=== PATIENT | female | born 1995 | race American Indian/Alaskan Native ===

== ENCOUNTER 2020-11-02 20:46 | Outpatient (CLI) | payer OTHER ==
[2020-11-02 23:07] VITALS: BP 102/68
== END 2020-11-02 23:40 | disposition home or self-care (01) ==
LOC: TRG 20:46 → APU 21:59 → TRG 23:40
PROVIDERS: ATTEND Obstetrics & Gynecology
DX: O47.1 False labor at or after 37 completed weeks of gestation (principal); Z3A.39 39 weeks gestation of pregnancy
CPT/HCPCS: 59025; Q0177

== ENCOUNTER 2020-11-04 21:58 | Outpatient (CLI) | payer OTHER ==
[2020-11-04 22:59] VITALS: BP 102/58
[2020-11-04] MEDS ORDERED: hydrOXYzine HCL 100 MG/2 ML INJ IM ONE (23:57)
== END 2020-11-05 | disposition home or self-care (01) ==
LOC: TRG 21:58 → APU 22:00 → TRG 11-05
PROVIDERS: ATTEND Obstetrics & Gynecology
DX: Z34.93 Encounter for supervision of normal pregnancy, unspecified, third trimester (principal); Z3A.40 40 weeks gestation of pregnancy
CPT/HCPCS: 59025; Q0177

== ENCOUNTER 2020-11-05 08:24 | Inpatient (IN) | payer OTHER ==
[2020-11-05] MEDS ORDERED: TERBUTALINE 1 MG/1 ML INJ SUB-Q PRN (08:50)
[2020-11-05] MEDS ORDERED: NALOXONE 0.4 MG/1 ML INJ IV PRN (08:50)
[2020-11-05] MEDS ORDERED: OXYTOCIN 10 UNIT/1 ML INJ IM PRN (08:50)
--- NOTE | 2020-11-05 08:50 | History and Physical Report ---
History of Present Illness Date of admission: 11/05/20 Chief complaint: My contractions are getting stronger. History of present illness: Pt presented to labor and delivery in active labor. EDC Confirmation: 11/03/2020 Gestational Age: 40.2 weeks on admission Past History : 3 Term Births: 1 Premature Births: 0 Living Children: 1 Para: 1 Mult. Births: 0 Prev : 0 Aborta: 1 Elect. Ab: 0 Spont. Ab: 1 Ectopics: 0 # 1 Delivery date: 03/09/2016 Weeks Gestation: 41 labor: no Delivery type: Hours of labor: 14 Anesthesia type: epidural Delivery location: [facility] Infant Sex: Male weight: 7-8 Name: Rosalie # 2 Delivery date: Weeks Gestation: ? Delivery type: SAB Comments: No D&C Past Medical History: Asthma Past Surgical History: Negative Past Surgical History Family History Summary: Other Family Member - Has No Family History of Ovarvian Cancer - Entered On: 06/01/2020 Other Family Member - Has No Family History of Colon Cancer - Entered On: 06/01/2020 Other Family Member - Has No Family History of Breast Cancer - Entered On: 06/01/2020 Social History: Marital Status: Single Children: 1 Occupation: Unemployed Smoking History: Patient has never smoked. Past Medical History Surgery (Non-follow up clerk): Negative Past Surgical History Abnormal PAP: negative Uterine Anomaly: negative Social Hx: Marital Status: Single Children: 1 Occupation: Unemployed Smoking History: Patient has never smoked. Infection History Hx of STD: chlamydia HIV Risk Eval: no Hepatitis B Risk Eval: low risk Personal hx. of genital herpes: no Genetic History Congenital Heart Defect: Mom: no Dad: no Bita Disease: Mom: no Dad: no Thalassemia Mom: no Dad: no Neural Tube Defect Mom: no Dad: no Down's Syndrome Mom: no Dad: no Homar-Sachs Mom: no Dad: no Sickle Cell Disease/Trait Mom: no Dad: no Hemophilia Mom: no Dad: no Muscular Dystrophy Mom: no Dad: no Cystic Fibrosis Mom: no Dad: no [place] Chorea Mom: no Dad: no Mental Retardation Mom: no Dad: no Fragile X Mom: no Dad: no Other Genetic/Chromosomal Disorder Mom: no Dad: no Child w/other defect Mom: no Dad: no Enviromental Exposures Xray Exposure: no Medication, drug, or alcohol use since LMP: no Exposure to Cat Liter: no Active Medications (reviewed today): None Current Allergies (reviewed today): No known allergies Past History Past Medical History: asthma Past Surgical History: no surgical history Family/Genetic History: none Social history: no significant social history - Obstetrical History Expected Date of Delivery: 11/03/20 Actual Gestation: 40 Week(s) 2 Day(s) : 4 Para: 1 Hx # Term Pregnancies: 1 Number of Pregnancies: 0 Spontaneous Abortions: 1 Induced : 0 Number of Living Children: 1 Medications and Allergies Allergies Allergy/AdvReac Type Severity Reaction Status Date / Time No Known Allergies Allergy Verified 11/02/20 23:26 Home Medications Medication Instructions Recorded Confirmed Last Taken Type No Known Home Medications [No 11/02/20 11/02/20 Unknown History Reported Home Medications] Review of Systems All systems: negative - Vital Signs Vital signs: Vital Signs Pulse BP 100 H 109/70 11/05/20 08:49 11/05/20 08:49 Temp Pulse Resp BP Pulse Ox 100 H 109/70 11/05/20 08:49 11/05/20 08:49 - Physical Exam Breasts: Positive: deferred Cardiovascular: Regular rate Lungs: Positive: Normal air movement Abdomen: Positive: normal appearance, soft Uterus: Positive: normal size Extremities: Positive: normal - Obstetrical FHR: category 1 Uterine Contraction Monitor Mode: External Cervical Dilatation: 6 (Per ingredient handler) Cervical Effacement Percentage: 70 station: -2 Uterine Contraction Pattern: Regular Uterine Tone Measurement Phase: Resting Uterine Contraction Intensity: Moderate Results Result Diagrams: 11/05/20 09:16 All other labs normal. GBS NEGATIVE HBsAg Screen Negative Negative *1 RPR Non Reactive Non Reactive *2 Rubella Antibodies, IgG 1.11 index Immune >0.99 *3 Non-immune <0.90 Equivocal 0.90 - 0.99 Immune >0.99 ABO Grouping O *4 Rh Factor Positive *5 Please note: Prior records for this patient's ABO / Rh type are not available for additional verification. Antibody Screen Negative Negative *6 Tests: (2) HB Solu + Rflx Frac (165516) Hemoglobin (Hgb) Solubility Negative Negative *31 Tests: (3) HIV Ag/Ab with Reflex (104502) HIV Screen 4th Generation wRfx Non Reactive Non Reactive *32 Tests: (4) HCV Antibody reflex to [facility] (563890) ! HCV Ab <0.1 s/co ratio 0.0-0.9 *33 Tests: (5) Interpretation: ([id number]) ! Interpretation: SPRCS *34 Negative Not infected with HCV, unless recent infection is suspected or other evidence exists to indicate HCV infection. Assessment and Plan - Patient Problems (1) Post term over 40 weeks Onset Date: ~11/05/20 Current Visit: Yes Status: Acute Plan to address problem: Admit to labor and delivery. Drawn admission labs. Start IV. IV fluid bolus for epidural placement. Anticipate .
[2020-11-05] MEDS ORDERED: ONDANSETRON 4 MG/2 ML INJ IV PRN ×2 (09:00→11:58)
[2020-11-05] MEDS ORDERED: ePHEDrine SULFATE 50 MG/1 ML INJ IV PRN ×2 (09:00→10:49)
[2020-11-05] MEDS ORDERED: METHYLERGONOVINE MALEATE 0.2 MG/ML VIAL IM PRN (09:00)
[2020-11-05] MEDS ORDERED: LIDOCAINE (2%) 20 MG/1 ML VIAL 20 ML MDV INFILTRATI SCH (09:00)
[2020-11-05] MEDS ORDERED: LACTATED RINGERS 1,000 ML IV SCH (09:00)
[2020-11-05] MEDS ORDERED: BUTORPHANOL 2 MG/1 ML INJ IV PRN (09:00)
[2020-11-05] MEDS ORDERED: miSOPROStol 200 MCG TAB PR PRN (09:00)
[2020-11-05] MEDS ORDERED: CARBOPROST TROMETHAMINE 250 MCG/1 ML INJ IM PRN (09:00)
[2020-11-05] MEDS ORDERED: LOPERAMIDE 2 MG CAP PO PRN (09:00)
[2020-11-05] MEDS ORDERED: OXYTOCIN DRIP 30 UNITS/500 ML BAG IV SCH ×3 (09:00→12:00)
[2020-11-05] MEDS ORDERED: fentaNYL 100 MCG/2 ML INJ IV PRN (09:00)
[2020-11-05] MEDS ORDERED: MINERAL OIL 30 ML ORAL LIQD PO PRN (09:00)
[2020-11-05] MEDS ORDERED: ACETAMINOPHEN 500 MG TAB PO PRN (09:20)
[2020-11-05] MEDS ORDERED: PROMETHAZINE 25 MG TAB PO PRN ×2 (09:30→11:58)
[2020-11-05 09:42] LABS: Hematocrit 35.6 % (30.3-42.9); Hemoglobin 12.4 gm/dl (10.1-14.3); Mean Corpuscular HGB Conc 35 % (30-34); Mean Corpuscular Volume 88 fl (79-97); Platelet Count 278 K/mm3 (140-440); Red Blood Count 4.02 M/mm3 (3.65-5.03); Red Cell Distribution Width 15.4 % (13.2-15.2)
[2020-11-05] MEDS ORDERED: NALOXONE 2 MG/2 ML INJ IV PRN (10:49)
--- NOTE | 2020-11-05 10:50 | Anesthesia Consultation ---
Anesthesia Consult and Med Hx Date of service: 11/05/20 - Airway Anesthetic Teeth Evaluation: Poor ROM Head & Neck: Adequate Mental/Hyoid Distance: Adequate Mallampati Class: Class II Intubation Access Assessment: Probably Good - Pulmonary Exam CTA: Yes - Cardiac Exam Cardiac Exam: RRR - Pre-Operative Health Status ASA Pre-Surgery Classification: ASA2 Proposed Anesthetic Plan: Epidural - Pulmonary Hx Smoking: No Hx Asthma: Yes (LAST ATTACK 2011) Hx Respiratory Symptoms: No SOB: No COPD: No Home Oxygen Therapy: No Hx Pneumonia: No Hx Sleep Apnea: No - Cardiovascular System Hx Hypertension: No Hx Coronary Artery Disease: No Hx Heart Attack/AMI: No Hx Angina: No Hx Percutaneous Transluminal Coronary Angioplasty (PTCA): No Hx Cardia Arrhythmia: No Hx Pacemaker: No Hx Internal Defibrillator: No Hx Valvular Heart Disease: No Hx Heart Murmur: No Hx Peripheral Vascular Disease: No - Central Nervous System Hx Neuromuscular Disorder: No Hx Seizures: No CVA: No Hx Back Pain: Yes Hx Psychiatric Problems: No - Gastrointestinal Hx Ulcer: No Hx Gastroesophageal Reflux Disease: Yes - Endocrine Hx Renal Disease: No Hx End Stage Renal Disease: No Hx Cirrhosis: No Hx Liver Disease: No Hx Insulin Dependent Diabetes: No Hx Non-Insulin Dependent Diabetes: No Hx Thyroid Disease: No Hx Hypothyroidism: No Hx Hyperthyroidism: No - Hematic Hx Anemia: No Hx Sickle Cell Disease: No - Other Systems Hx Alcohol Use: Yes (SOCIALLY) Hx Substance Use: No Hx Cancer: No Hx Obesity: Yes
--- NOTE | 2020-11-05 10:53 | Progress Note ---
Labor Epidural - Labor Epidural Start Time: 10:28 Stop Time: 10:38 Performed by:: PEPE STEVENS Procedure: Patient is requesting a laboring epidural for laboring pain. Patient IDed, H&P reviewed, all questions and concerns were answered, and consent was signed. Timeout was performed at bedside. Patient in sitting position. Sterile prep and drape was performed. [3] ml of 1% lidocaine skin wheal at L[3]- L [4]. 18- gauge Miriam epidural needle was advanced to loss of resistance with saline technique 6cm. Single dural perforation via 27 guage spinal needle placed through the shaft of Epidural needle. Positive CSF via spinal needle. Negative CSF negative blood via Epidural needle. Epidural catheter advanced to [10] centimeters. [NEGATIVE] Aspiration [NEGATIVE] test dose. Negative Paresthesia. Sterile dressing applied. Patient tolerated procedure.
[2020-11-05] MEDS ORDERED: fentaNYL-BUPIV 2 MCG/ML-0.125% 200 MCG/100 ML BAG EPIDURAL SCH (11:00)
[2020-11-05] MEDS ORDERED: diphenhydrAMINE 25 MG CAP PO PRN (11:58)
[2020-11-05] MEDS ORDERED: PROMETHAZINE 25 MG RECT SUPP PR PRN (11:58)
[2020-11-05] MEDS ORDERED: LANOLIN/ZINC/DIMETHICONE (LANSINOH) 7 GM TP PRN ×2 (11:58)
[2020-11-05] MEDS ORDERED: WITCH HAZEL/ GLYCERIN PAD TP PRN (11:58)
[2020-11-05] MEDS ORDERED: BENZOCAINE/MENTHOL 20/0.5% TOP SPRAY 56 GM TP PRN (11:58)
[2020-11-05] MEDS ORDERED: oxyCODONE /ACETAMINOPHEN 5-325MG TAB PO PRN (11:58)
[2020-11-05] MEDS ORDERED: MAGNESIUM HYDROXIDE (MOM) ORAL LIQD UDC PO PRN (11:58)
[2020-11-05] MEDS ORDERED: ACETAMINOPHEN 325 MG TAB PO PRN (11:58)
[2020-11-05] MEDS ORDERED: miSOPROStol 100 MCG TAB PR PRN (11:58)
--- NOTE | 2020-11-05 11:58 | Procedure Note ---
OB Delivery Note - Delivery Date of Delivery: 11/05/20 Stock Buyer: JOSEE OWUSU Estimated blood loss: 100cc - Vaginal Delivery presentation: vertex Delivery position: OA Intrapartum events: mult.variable deceleratio Delivery induction: none Delivery augmentation: rupture of membranes (Clear fluid) Delivery monitor: external FHT, external uterine Route of delivery: Delivery placenta: spontaneous Delivery cord: 3 umbilical vessels Episiotomy: none Delivery laceration: none Anesthesia: epidural Delivery comments: of viable male infant. Infant to mother's abdomen for skin to skin. Cord clamped. Cut by FOC. Spontaneous delivery of placenta, complete, intact, 3 vessels noted. Fundus firm, minimal bleeding noted. Perineum and vagina inspected, no lacerations noted. Infant weight 6-11. EBL 150ml. Sponges and instruments counted X2 with RN and correct X2. Mother and infant left in stable condition and in the care of RN. - Infant A at 1 minute: 8 at 5 minutes: 9 Gender: Male ("Andrew", 6-11)
[2020-11-05] MEDS ORDERED: IBUPROFEN 600 MG TAB PO SCH (12:00)
[2020-11-05] MEDS: IBUPROFEN 800 MG TAB PO SCH (18:04)
--- NOTE | 2020-11-05 20:35 | Post Anesthesia Evaluation ---
- Post Anesthesia Evaluation Patient Participated: Yes Airway Patent: Yes Stable Respiratory Function: Yes Nausea/Vomiting: No Temp > 96.8F: Yes Pain Manageable: Yes Adequeate Hydration: Yes Anesthesia Complications: No Block Receding Appropriately: Yes Patient on Ventilator: No
[2020-11-05] MEDS: DOCUSATE SODIUM 100 MG CAP PO SCH (21:43)
[2020-11-06 02:58] LABS: Hematocrit 27.8 % (30.3-42.9); Hemoglobin 9.2 gm/dl (10.1-14.3)
[2020-11-06] MEDS: IBUPROFEN 800 MG TAB PO SCH ×2 (05:49)
[2020-11-06] MEDS ORDERED: TETANUS,DIPH,PERTUSS(ACELL) VACCINE 0.5 ML SYRINGE IM ONE (06:00)
[2020-11-06 08:47] VITALS: BP 98/62
--- NOTE | 2020-11-06 09:27 | Discharge Summary ---
Providers - Providers Date of Admission: 11/05/20 09:54 Date of discharge: 11/06/20 (pt desires d/c today) Attending physician: ENMANUEL TURNER Primary care physician: MIGUELITO SANCHEZ Hospitalization Reason for admission: active labor, IUP at term Delivery: Episiotomy: none Laceration: none Incision: normal Other procedures: none complications: none Discharge diagnosis: IUP at term delivered baby: male Hospital course: Uncomplicated vaginal delivery Pt awake caring for NB VSS FF below umb Lochia small perineum intact H&H 12/13 op r/t blood loss from delivery pt is asymptomatic Doing well s/p vag delivery P: d/c today with instructions Call to gulshan son's circ in office EMLA RX on chart. Condition at discharge: Good Disposition: 01 HOME / SELF CARE / HOMELESS - Discharge Diagnoses (1) Spontaneous vaginal delivery Status: Acute Comment: RTO 4 weeks PP Care Plan - Discharge Medications Prescriptions: Lidocain2.5%/Prilocai2.5% [Emla] 1 applic TP ONCE #1 tube Ibuprofen [Motrin] 800 mg PO Q8HR PRN #30 tablet PRN Reason: Pain, Moderate (4-6) - Provider Discharge Summary Activity: routine, no sex for 6 weeks, no heavy lifting 4 weeks, no strenuous exercise Diet: routine Instructions: routine Additional instructions: [] Smoking cessation referral if applicable(refer to patient education folder for contact #) [] Refer to [facility] Booklet Call your doctor immediately for: * Fever > 100.5 * Heavy vaginal bleeding ( >1 pad per hour) * Severe persistent headache * Shortness of breath * Reddened, hot, painful area to leg or breast * Drainage or odor from incision. * Keep incision clean and dry at all times and follow doctor's instructions regarding bathing/showering - Follow up plan Follow up: MIGUELITO SANCHEZ MD [Primary Care Provider] - 7 Days (Congratulations! Please call [phone] to schedule your visit in 4 weeks and your son's circumcision in 1 week. Bring the EMLA cream with you to his visit. Do NOT use at home. Take motrin for pain/cramping. Call with any concerns.)
[2020-11-06] MEDS ORDERED: PRENATAL VIT27-FE FUMARATE-FOLIC ACID VIT TAB PO SCH (10:00)
[2020-11-06] MEDS ORDERED: FERROUS SULFATE 325 MG TAB PO SCH (10:00)
[2020-11-06] MEDS: DOCUSATE SODIUM 100 MG CAP PO SCH (11:47)
== END 2020-11-06 15:20 | disposition home or self-care (01) | DRG 775 ==
LOC: TRG 08:24 → APU 08:26 → TRG 08:50 → LD 09:47 → OB 14:15
PROVIDERS: ADMIT Obstetrics & Gynecology; ATTEND Obstetrics & Gynecology
PROC: 10E0XZZ Delivery of Products of Conception, External Approach (ICD-10-PCS; principal; 2020-11-05)
PROC: 3E0R3BZ Introduction of Anesthetic Agent into Spinal Canal, Percutaneous Approach (ICD-10-PCS; 2020-11-05)
PROC: 00HU33Z Insertion of Infusion Device into Spinal Canal, Percutaneous Approach (ICD-10-PCS; 2020-11-05)
DX: O48.0 Post-term pregnancy (principal); O99.52 Diseases of the respiratory system complicating childbirth; O76 Abnormality in fetal heart rate and rhythm complicating labor and delivery; J45.909 Unspecified asthma, uncomplicated; O99.62 Diseases of the digestive system complicating childbirth; O99.214 Obesity complicating childbirth; E66.9 Obesity, unspecified; K21.9 Gastro-esophageal reflux disease without esophagitis; Z20.822 Contact with and (suspected) exposure to COVID-19; Z3A.40 40 weeks gestation of pregnancy; Z37.0 Single live birth
CPT/HCPCS: 36415; 59025; 85014; 85018; 85027; 86592; 86850; 86900; 86901; 99211; G0378; A6250; G0463; J2590; J7120; Q0177; U0003